=== PATIENT | male | born 1990 | race Two or more races ===

== ENCOUNTER 2019-11-07 13:20 | Emergency (ER) | payer BC, OTHER ==
[~2019-11-07] VITALS: Ht 172.7 cm; Wt 86.2 kg
[2019-11-07] MEDS: SODIUM CHLORIDE 0.9% 1,000 ML IV ONE (13:37)
[2019-11-07 13:56] LABS: Basophils # (auto) 0 uL; Basophils % (auto) 0.4 % (0.0-2.0); Eosinophils # (auto) 0 uL; Eosinophils % (auto) 0.3 % (0.0-7.0); Hematocrit 43.8 % (41.0-53.0); Hemoglobin 14.8 g/dL (13.5-17.5); Lymphocytes # (auto) 0.8 uL; Lymphocytes % (auto) 7.5 % (10.0-50.0); Mean Corpuscular Hemoglobin 29.5 pg (28.0-32.0); Mean Corpuscular Hgb Conc. 33.8 g/dL (32.0-36.0); Mean Corpuscular Volume 87.5 fL (80.0-100.0); Monocytes # (auto) 0.8 uL; Monocytes % (auto) 7.7 % (0.0-12.0); Neutrophils # (auto) 9.1 uL; Neutrophils % (auto) 84.1 % (37.0-80.0); Platelet Count (auto) 231 10^3/uL (140-450); Red Cell Distribution Width 13.6 % (11.8-14.3); White Blood Cell 10.8 10^3/uL (4.4-10.8)
[2019-11-07] MEDS: ONDANSETRON HCL 4 MG/2 ML VIAL IV ONE (13:57)
[2019-11-07 14:12] LABS: Albumin 4.1 g/dL (3.4-5.0); Anion Gap 9 (5-15); BUN/Creatinine Ratio 18.1; Blood Urea Nitrogen 19 mg/dL (7-18); Calcium 8.7 mg/dL (8.5-10.1); Carbon Dioxide 25 mmol/L (21-32); Chloride 107 mmol/L (98-107); GFR African American 107 mL/min; GFR Non-African American 88 mL/min; Glucose 104 mg/dL (74-106); Potassium 3.6 mmol/L (3.5-5.1); Sodium 141 mmol/L (136-145)
[2019-11-07 14:15] LABS: Lactic Acid w/Reflex 2.5 mmol/L (0.4-2.0)
[2019-11-07 14:23] LABS: Alanine Aminotransferase 41 U/L (16-61); Alkaline Phosphatase 66 U/L (45-117); Aspartate Aminotransferase 19 U/L (15-37); Bilirubin, Total 0.7 mg/dL (0.2-1.0)
[2019-11-07 15:05] LABS: Urine Bacteria NONE SEEN /hpf (None Seen); Urine Blood Negative /uL (Negative); Urine Mucus FEW (None Seen); Urine Specific Gravity 1.027 (1.001-1.035); Urine WBC 1 /hpf (0 - 3)
[2019-11-07 15:27] VITALS: BP 118/68
== END 2019-11-07 15:38 | disposition home or self-care (01) ==
LOC: EDBD 13:20 → ER 13:20
DX: R55 Syncope and collapse (principal); E86.0 Dehydration
CPT/HCPCS: 36415; 71045; 80053; 81001; 83605; 84484; 85025; 93005; 96361; 96374; 99284; J2405